=== PATIENT | male | born 1975 | race Caucasian/White ===

== ENCOUNTER 2020-03-23 16:04 | Emergency (ER) | payer OTHER ==
[~2020-03-23] VITALS: Ht 175.3 cm; Wt 88.4 kg
--- NOTE | 2020-03-23 16:20 | NUR ---
WANDA ANDRADE AT .
[2020-03-23] MEDS ORDERED: HYDROmorphone 1 MG/ML, 1ML INJ IM STA (16:25)
[2020-03-23] MEDS ORDERED: HYDROmorphone 1 MG/ML, 1ML INJ ONE (16:33)
--- NOTE | 2020-03-23 16:40 | NUR ---
US AT BS.
--- NOTE | 2020-03-23 17:05 | NUR ---
BREAK RN: PT MEDICATED. VS STABLE. FAMLIY AT BEDSIDE. CALL LIGHT IN PLACE. WILL OCNTINUE TO MONITOR WHILE PRIMARY RN IS ON BREAK.
--- NOTE | 2020-03-23 17:07 | NUR ---
BREAK RN: REPOERT GIVEN TO KAYLIE STYLES
--- NOTE | 2020-03-23 17:45 | NUR ---
RV'WD POC WITH PT. VSS. SIGNIFICANT OTHER AT BS. PT REPORTS PAIN WELL CONTROLLED AFTER DILAUDID.
--- NOTE | 2020-03-23 18:10 | NUR ---
PT TO MRI VIA [facility].
[2020-03-23] MEDS ORDERED: MORPHINE SULFATE 4 MG/ML, 1ML IVPush PRN (19:30)
[2020-03-23] MEDS ORDERED: ONDANSETRON 2MG/ML, 2ML IVPush ONE (19:30)
[2020-03-23] MEDS ORDERED: ONDANSETRON 2MG/ML, 2ML ONE (19:36)
[2020-03-23] MEDS ORDERED: MORPHINE SULFATE 4 MG/ML, 1ML ONE (19:36)
--- NOTE | 2020-03-23 19:45 | NUR ---
POC RV'WD WITH PT. MEDICATED FOR L ARM PAIN PER ORDERS.
[2020-03-23 20:00] VITALS: BP 121/82
[2020-03-23] MEDS ORDERED: OXYcodone/APAP 5/325MG TABLET PO ONE (20:30)
[2020-03-23] MEDS ORDERED: OXYcodone/APAP 5/325MG TABLET ONE (20:30)
--- NOTE | 2020-03-23 20:35 | NUR ---
L ARM SLING APPLIED BY [employer] CONSULTANT, CMS INTACT. PT MEDICATED WITH PERCOCET FOR PAIN. D/C INSTRUCTIONS, MEDS & F/U APPT RV'WD WITH PT, HE VERBALIZES UNDERSTANDING. INSTRUCTED PT TO RETURN TO ED FOR INCREASING PAIN, SWELLING, NUMBNESS/TINGLING, OR ANY CONCERNING SYMPTOMS. RX GIVEN X1. PT AMBULATED OUT OF ED WITHOUT DIFFICULTY, TO DRIVE HIM HOME.
== END 2020-03-23 20:38 | disposition home or self-care (01) ==
LOC: ED 19:13
DX: S46.122A Laceration of muscle, fascia and tendon of long head of biceps, left arm, initial encounter (principal); X58.XXXA Exposure to other specified factors, initial encounter; Y93.89 Activity, other specified; Y92.098 Other place in other non-institutional residence as the place of occurrence of the external cause; Y99.8 Other external cause status
CPT/HCPCS: 73080; 73218; 76881; 96372; 96374; 96375; 99285; J1170; J2270; J2405